=== PATIENT | female | born 1990 | race African-American/Black ===

== ENCOUNTER 2017-10-23 11:01 | Emergency (ER) | payer MEDICAID ==
[~2017-10-23] VITALS: Ht 172.7 cm; Wt 97.0 kg
[2017-10-23 11:02] VITALS: BP 131/63; PULSE 112; RESP 20; TEMP 99.3; O2SAT 98
[2017-10-23] MEDS ORDERED: IBUPROFEN 800 MG TAB PO ONE (11:30)
--- NOTE | 2017-10-23 11:44 | PD ---
HPI . Myalgias Chief Complaint: Cold / Flu Symptoms Time Seen by Provider: 11:21 Travel History International Travel<30 days: No Contact w/Intl Traveler<30days: No Traveled to known affect area: No History of Present Illness HPI This patient presents with the chief complaint of myalgias, particularly back pain. Onset was last night. Symptoms have been constant. Other associated symptoms include a sore throat, cough, nausea/vomiting/diarrhea. She states that she took Robitussin last night thinking that it was her allergies. She has not tried an jvqz-eyr-clmyhla analgesic. She describes her back pain as 9/ 10 and states that it is exacerbated by sitting up PFSH Past Medical History Medical History: Denies Significant Hx Tetanus Vaccination: < 5 Years Influenza Vaccination: No ?: Not LMP: 09/29/17 Past Surgical History Surgical History: No Previous Surgery Social History Alcohol Use: No Tobacco Use: No (quit 1 yr ago) Substance Use: No Allergies-Medications (Allergen,Severity, Reaction): Coded Allergies: No Known Allergies (Unverified , 10/23/17) Review of Systems Except as stated in HPI: all other systems reviewed are Neg General / Constitutional: Positive: Fever, Chills HENT: Positive: Sore Throat, Congestion Cardiovascular: Positive: Chest Pain or Discomfort Respiratory: Positive: Cough Gastrointestinal: Positive: Nausea, Vomiting, Diarrhea Musculoskeletal: Positive: Myalgias Physical Exam Narrative GENERAL: Awake and alert.. SKIN: Warm and dry. Good color and turgor. HEAD: Normocephalic/atraumatic. EYES: Pupils are equal. Extraocular movements are intact. No conjunctival injection or discharge. ENT: Edema of the nasal turbinates with a mild nasal discharge. Oropharynx is pink and moist with no erythema, tonsillar enlargement or exudate. NECK: Normal range of motion. Neck is supple. There is no cervical lymphadenopathy. CARDIOVASCULAR: Regular rate and rhythm. Heart sounds are normal. RESPIRATORY: Nonlabored respirations. Lungs are clear with full air movement throughout. MUSCULOSKELETAL: Atraumatic. Diffuse back tenderness. NEUROLOGICAL: Nonfocal. PSYCHIATRIC: Appropriate mood and affect. Data Data Last Documented VS Vital Signs Date Time Temp Pulse Resp B/P (MAP) Pulse Ox O2 Delivery O2 Flow Rate FiO2 10/23/17 11:02 99.3 112 20 131/63 (85) 98 Room Air Orders Orders Ibuprofen (Motrin) (1/3/18 11:30) Ed Discharge Order (10/23/17 11:29) [facility] Medical Decision Making Medical Screen Exam Complete: Yes Emergency Medical Condition: Yes Differential Diagnosis Differential diagnosis includes but is not limited to viral syndrome, rhabdomyolysis, sepsis, overuse syndrome Narrative Course This patient presents with acute myalgias, upper respiratory symptoms, GI symptoms. Clinically, she has a viral syndrome. She is afebrile. She will be treated symptomatically. Diagnosis Primary Impression: Viral syndrome Referrals: [facility] Patient Instructions: General Instructions, Viral Syndrome (ED) Departure Forms: Tests/Procedures Additional Instructions: I recommend the use of a Neti Pot. You may use a nasal spray such as Afrin for up to 3 days as needed for nasal congestion. You may take an gfei-auu-bflwzno antihistamine such as Zyrtec, Parisa or Claritin as needed for runny secretions. You may take pseudoephedrine as needed for congestion. You will need to sign for this at the pharmacy. You may take plain Mucinex, 1200 mg twice a day as needed for thick secretions. You may take a cough syrup such as Delsym as needed for cough. Motrin as needed for fever and body aches. Throat lozenges/sprays as needed for sore throat. Warm salt water gargles for sore throat. Hot tea with lemon and honey also helps soothe a sore throat. Disposition: 01 DISCHARGE HOME Condition: Stable Janie Rabago MD Oct 23, 2017 11:44
[2017-10-23 12:04] VITALS: BP 132/78
== END 2017-10-23 12:05 | disposition home or self-care (01) ==
LOC: NEPD 11:01
DX: B34.9 Viral infection, unspecified (principal); M54.9 Dorsalgia, unspecified; Z87.891 Personal history of nicotine dependence
CPT/HCPCS: 99282

== ENCOUNTER 2017-11-21 19:34 | Emergency (ER) | payer MEDICAID ==
[~2017-11-21] VITALS: Ht 172.7 cm; Wt 98.0 kg
[2017-11-21 19:35] VITALS: BP 129/82; PULSE 76; RESP 18; TEMP 98.3; O2SAT 100
[2017-11-21] MEDS ORDERED: SODIUM CHLOR 0.9% 1000 ML INJ 1,000 ML IV ONE (22:25)
[2017-11-21] MEDS ORDERED: SODIUM CHLORIDE 0.9% FLUSH 10 ML FLUSH IVF PRN (22:30)
[2017-11-21] MEDS ORDERED: PROCHLORPERAZINE INJ 10 MG/2 ML VIAL IVP ONE (22:30)
[2017-11-21] MEDS ORDERED: diphenhydrAMINE HCL 50 MG/ML VIAL IVP ONE (22:30)
[2017-11-21] MEDS ORDERED: KETOROLAC TROMETHAMINE 30 MG/ML (IVP) VIAL IVP ONE (22:30)
--- NOTE | 2017-11-21 23:00 | PD ---
HPI Chief Complaint: Headache Time Seen by Provider: 22:19 Travel History International Travel<30 days: No Contact w/Intl Traveler<30days: No Traveled to known affect area: No History of Present Illness HPI Patient is a 27-year-old female presenting to emergency for evaluation of a headache. Patient reports a history of migraines, she states that she was on medication for this several years ago but stopped. The medication was a daily medication not abortive therapy. She states that she feels nauseated, dizzy and the light bothers her eyes. She rates her pain 10 out of 10, she denies any cold or flulike symptoms. There are no alleviating factors, pain is exacerbated with movement and light. Symptom onset was gradual, it was somewhat alleviated last night and she was able to sleep. Symptoms returned today prompting her visit to the emergency department. [facility] Past Medical History Migraines: Yes ?: Unknown LMP: 11/06/17 Social History Alcohol Use: No Tobacco Use: No (quit 1 yr ago) Substance Use: No Allergies-Medications (Allergen,Severity, Reaction): Coded Allergies: No Known Allergies (Unverified , 10/23/17) Review of Systems Except as stated in HPI: all other systems reviewed are Neg Eyes: Positive: Photophobia HENT: Positive: Headaches Gastrointestinal: Positive: Nausea Physical Exam Narrative GENERAL: Well-nourished, well-developed, female. Appears uncomfortable, in no acute distress. SKIN: Warm and dry. HEAD: Atraumatic. Normocephalic. EYES: Pupils equal and round. No scleral icterus. No injection or drainage. ENT: No nasal bleeding or discharge. Mucous membranes pink and moist. NECK: Trachea midline. No JVD. CARDIOVASCULAR: Regular rate and rhythm. RESPIRATORY: No accessory muscle use. Clear to auscultation. Breath sounds equal bilaterally. GASTROINTESTINAL: Abdomen soft, non-tender, nondistended. Hepatic and splenic margins not palpable. MUSCULOSKELETAL: Extremities without clubbing, cyanosis, or edema. No obvious deformities. NEUROLOGICAL: Awake and alert. No obvious cranial nerve deficits. Motor grossly within normal limits. Five out of 5 muscle strength in the arms and legs. Normal speech. PSYCHIATRIC: Appropriate mood and affect; insight and judgment normal. Data Data Last Documented VS Vital Signs Date Time Temp Pulse Resp B/P (MAP) Pulse Ox O2 Delivery O2 Flow Rate FiO2 11/21/17 19:35 98.3 76 18 129/82 (98) 100 Room Air Orders Orders Iv Access Insert/Monitor (11/21/17 22:25) Sodium Chloride 0.9% Flush (Ns Flush) (11/21/17 22:30) Ketorolac Inj (Toradol Inj) (11/21/17 22:30) Prochlorperazine Inj (Compazine Inj) (11/21/17 22:30) Diphenhydramine Inj (Benadryl Inj) (11/21/17 22:30) Sodium Chlor 0.9% 1000 Ml Inj (Ns 1000 M (11/21/17 22:25) MDM Medical Decision Making Medical Screen Exam Complete: Yes Emergency Medical Condition: Yes Interpretation(s) Vital Signs Date Time Temp Pulse Resp B/P (MAP) Pulse Ox O2 Delivery O2 Flow Rate FiO2 11/21/17 19:35 98.3 76 18 129/82 (98) 100 Room Air Differential Diagnosis Migraine versus tension headache versus sinusitis versus cluster headache versus other Narrative Course Patient is a 27-year-old female presented to emergency for evaluation of a headache which she calls a migraine. There are no focal deficits noted on exam. Medications ordered. She was reassessed, she is currently resting comfortably, she appears more relaxed and pain has improved. She is encouraged to follow-up with her primary doctor, return to emergency department for any new or worsening symptoms. She was encouraged to avoid headache triggers. Patient verbalized understanding of these instructions. Patient is stable for discharge. Diagnosis Primary Impression: Headache Qualified Codes: R51 - Headache Referrals: Primary Care Physician 2 days Patient Instructions: Acute Headache (ED), General Instructions Additional Instructions: Follow-up with your primary doctor Avoid headache triggers Maintain adequate fluid intake Return to emergency department for any new or worsening symptoms Med/Other Pt SpecificInfo: No Change to Meds Disposition: 01 DISCHARGE HOME Condition: Stable Kwame,Ivelissewoodrow ALEMAN Nov 21, 2017 23:00
== END 2017-11-22 02:39 | disposition home or self-care (01) ==
LOC: NEPD 19:34
DX: R51 Headache (principal); R42 Dizziness and giddiness; R11.0 Nausea; Z87.891 Personal history of nicotine dependence
CPT/HCPCS: 96361; 96374; 96375; 99284; J0780; J1200; J1885; J7030